=== PATIENT | male | born 1950 | race Caucasian/White ===

== ENCOUNTER → 2016-07-17 | Outpatient (CLI) | payer BC, OTHER ==
[~2016-07-17] MED LIST: CARDURA8 MG PO; HUMULIN N100 UNITS/ SC; HUMULIN R500 UNIT/1 SC; HUMULIN R500 UNITS/ SC; LASIX20 MG PO; LONITEN10 MG PO; LOPRESSOR50 MG PO; NORCO 5/3251 TABLET PO; NORVASC5 MG PO; PRAVACHOL20 MG PO; RENVELA800 MG PO; SYNTHROID175 MCG PO; VITAMIN B-3 PO; VITAMIN D2000 UNIT PO; ZEMPLAR1 MCG PO
== END | disposition home or self-care (01) ==
LOC: AMB 14:00
PROC: 0JPT3XZ Removal of Tunneled Vascular Access Device from Trunk Subcutaneous Tissue and Fascia, Percutaneous Approach (ICD-10-PCS; principal; 2016-07-17)
DX: Z45.2 Encounter for adjustment and management of vascular access device (principal); N18.6 End stage renal disease